=== PATIENT | female | born 1945 | race African-American/Black ===

== ENCOUNTER 2018-03-16 08:01 | Emergency (ER) | payer MEDICARE | END 2018-03-16 09:22 | disposition left against medical advice (07) | LOC: ER 09:18 | DX: Z53.21 Procedure and treatment not carried out due to patient leaving prior to being seen by health care provider (principal) ==

== ENCOUNTER 2019-01-04 16:35 | Inpatient (IN) | payer MEDICARE ==
[~2019-01-04] VITALS: Ht 177.8 cm; Wt 94.8 kg
[2019-01-04] MEDS ORDERED: SODIUM CHLORIDE 0.9% 1,000 ML IV ONE (16:59)
[2019-01-04] MEDS ORDERED: ACETAMINOPHEN 325MG TABLET PO ONE (18:00)
[2019-01-04 18:03] LABS: BASOPHILS % 0.7 % (0.0-2.0); HEMATOCRIT. 45.9 % (36.0-48.0); HEMOGLOBIN. 14.6 g/dL (12.0-16.0); LYMPHOCYTES % 30.6 % (20.0-50.0); MEAN CORPUSCULAR HEMOGLOBIN 22.8 pg (28.0-32.0); MEAN CORPUSCULAR VOLUME 71.4 fL (81.0-99.0); MEAN PLATELET VOLUME 8.4 fl (7.4-10.4); MONOCYTES % 7.9 % (2.0-8.0); NEUTROPHILS % 52.8 % (40.0-76.0); PLATELET 266 x1000/uL (130-400); RED BLOOD CELL COUNT 6.43 mill/uL (4.2-5.4); RED CELL DISTRIBUTION WIDTH 15.5 % (11.6-14.6)
[2019-01-04 18:10] LABS: CHLORIDE 101 mEq/L (98-107)
[2019-01-04 18:16] LABS: D-DIMER 0.27 mg/L FEU (<0.50); PROTHROMBIN TIME 10.7 sec (9.6-11.0)
[2019-01-04] MEDS ORDERED: SODIUM CHLORIDE 0.9% 1000ML BAG (SEPSIS BOLUS) IV ONE (18:45)
[2019-01-04] MEDS ORDERED: ASPIRIN 325MG EC TABLET PO ONE (19:15)
[2019-01-04 19:53] LABS: CLARITY URINE CLEAR (CLEAR); COLOR URINE YELLOW (YELLOW); KETONES URINE NEGATIVE (NEGATIVE); LEUKOCYTE ESTERASE URINE 3+ (NEGATIVE); NITRITE URINE NEGATIVE (NEGATIVE); OCCULT BLOOD URINE NEGATIVE (NEGATIVE); PH URINE 6.5 (4.5-8.0); PROTEIN URINE NEGATIVE (NEGATIVE); UROBILINOGEN URINE 0.2 E.U./dL (0.2-1.0)
[2019-01-04] MEDS ORDERED: CEFTRIAXONE 1 G PREMIX 50 ML IV SCH (20:30)
[2019-01-04] MEDS ORDERED: DEXTROSE 50% WATER 50ML SYRINGE IV PRN (21:30)
[2019-01-04] MEDS ORDERED: HYDRALAZINE 20MG/ML VIAL IV PRN (21:30)
[2019-01-04] MEDS ORDERED: ONDANSETRON HCL 4MG/2ML INJ IV PRN (21:30)
[2019-01-04] MEDS ORDERED: MAGNESIUM/ALUMINUM HYDROXIDE/SIMETHICONE 30ML UDC PO PRN (21:30)
[2019-01-04] MEDS ORDERED: LORAZEPAM 2MG/ML CPJ IV PRN (21:30)
[2019-01-04] MEDS ORDERED: GUAIFENESIN 200MG/10ML SUGAR FREE UDC PO PRN (21:30)
[2019-01-04] MEDS ORDERED: MORPHINE SULFATE 2 MG/ML CPJ (NOT FOR IM USE) IV PRN (21:30)
[2019-01-04] MEDS ORDERED: DOCUSATE SODIUM 100MG CAPSULE PO PRN (21:30)
[2019-01-04] MEDS ORDERED: ACETAMINOPHEN 325MG TABLET PO PRN (21:30)
[2019-01-04] MEDS ORDERED: NA PHOS,M-B/NA PHOS,DI-BA ENEMA 118ML PR PRN (21:30)
[2019-01-04] MEDS ORDERED: DIPHENHYDRAMINE 50MG/ML VIAL IV PRN (21:30)
[2019-01-04 22:00] VITALS: BP 150/75
[2019-01-04] MEDS: SODIUM CHLORIDE 0.9% INJ 3ML FLUSH IVF SCH (22:37)
[2019-01-04] MEDS: HYDROCODONE/ACETAMINOPHEN 10/325MG TABLET PO PRN (22:37)
[2019-01-05] VITALS: BP 158/75
[2019-01-05] MEDS ORDERED: LOSA50TA41 PO (00:14)
[2019-01-05] MEDS ORDERED: AMLO5TAB88 PO (00:14)
[2019-01-05] MEDS ORDERED: ATEN50TA PO (00:14)
[2019-01-05] MEDS ORDERED: TRIA1TAB92 PO (00:14)
[2019-01-05 01:04] LABS: CREATINE KINASE 68 IU/L (26-192)
[2019-01-05 01:05] LABS: CREATINE KINASE MB FRACTION < 1.0 ng/mL (0.5-3.6)
[2019-01-05] MEDS: IPRATROPIUM/ALBUTEROL 0.5-3(2.5)MG/3ML NEB HHN PRN (01:42)
[2019-01-05 04:00] VITALS: BP 137/61
[2019-01-05] MEDS: SODIUM CHLORIDE 0.9% INJ 3ML FLUSH IVF SCH ×3 (05:29→21:43)
[2019-01-05 07:06] LABS: BASOPHILS % 0.6 % (0.0-2.0); EOSINOPHILS % 8.6 % (0.0-5.0); HEMATOCRIT. 39.4 % (36.0-48.0); HEMOGLOBIN. 12.6 g/dL (12.0-16.0); LYMPHOCYTES % 32.6 % (20.0-50.0); MEAN CORPUSCULAR HEMOGLOBIN 22.8 pg (28.0-32.0); MEAN CORPUSCULAR VOLUME 71.2 fL (81.0-99.0); MEAN PLATELET VOLUME 8.5 fl (7.4-10.4); NEUTROPHILS % 48.2 % (40.0-76.0); PLATELET 214 x1000/uL (130-400); RED BLOOD CELL COUNT 5.53 mill/uL (4.2-5.4); RED CELL DISTRIBUTION WIDTH 15.7 % (11.6-14.6)
[2019-01-05 07:22] LABS: CHLORIDE 107 mEq/L (98-107)
[2019-01-05 07:34] LABS: CREATINE KINASE 59 IU/L (26-192); LDL CHOLESTEROL 110 mg/dL (5-100)
[2019-01-05 07:35] LABS: CREATINE KINASE MB FRACTION < 1.0 ng/mL (0.5-3.6); HDL CHOLESTEROL 52 mg/dL (40-59)
[2019-01-05 07:36] LABS: T4 FREE 1.08 ng/dL (0.76-1.46)
[2019-01-05 08:00] VITALS: BP 142/73
[2019-01-05] MEDS: ENOXAPARIN 40MG/0.4ML SYR SUBCUT SCH (08:39)
[2019-01-05] MEDS: HYDROCODONE/ACETAMINOPHEN 10/325MG TABLET PO PRN ×3 (08:39→21:42)
[2019-01-05] MEDS: ASPIRIN 81MG EC TABLET PO SCH (08:39)
[2019-01-05] MEDS ORDERED: POTASSIUM CHLORIDE 20MEQ TABLET SR PO SCH (10:15)
[2019-01-05 12:00] VITALS: BP 141/71
[2019-01-05] MEDS ORDERED: OMEP10CA5 MT (13:03)
[2019-01-05 16:00] VITALS: BP 154/84
[2019-01-05] MEDS: OMEPRAZOLE 20MG CAPSULE EXTENDED RELEASE PO SCH (17:51)
[2019-01-05 18:15] LABS: CREATINE KINASE 68 IU/L (26-192)
[2019-01-05 18:16] LABS: CREATINE KINASE MB FRACTION < 1.0 ng/mL (0.5-3.6)
[2019-01-05 20:00] VITALS: BP 165/81
[2019-01-05] MEDS: CLONIDINE 0.1MG TABLET PO PRN (21:42)
[2019-01-06 00:15] VITALS: BP 150/70
[2019-01-06 00:48] LABS: CREATINE KINASE 63 IU/L (26-192)
[2019-01-06 00:51] LABS: CREATINE KINASE MB FRACTION < 1.0 ng/mL (0.5-3.6)
[2019-01-06] MEDS: IPRATROPIUM/ALBUTEROL 0.5-3(2.5)MG/3ML NEB HHN PRN (02:36)
[2019-01-06] MEDS: HYDROCODONE/ACETAMINOPHEN 10/325MG TABLET PO PRN ×3 (02:53→21:24)
[2019-01-06 04:00] VITALS: BP 139/62
[2019-01-06] MEDS: SODIUM CHLORIDE 0.9% INJ 3ML FLUSH IVF SCH ×3 (05:59→21:24)
[2019-01-06 07:39] LABS: CREATINE KINASE 58 IU/L (26-192); CREATINE KINASE MB FRACTION < 1.0 ng/mL (0.5-3.6)
[2019-01-06] MEDS: OMEPRAZOLE 20MG CAPSULE EXTENDED RELEASE PO SCH (07:46)
[2019-01-06 08:00] VITALS: BP 156/75
[2019-01-06] MEDS: ASPIRIN 81MG EC TABLET PO SCH (08:00)
[2019-01-06] MEDS: ENOXAPARIN 40MG/0.4ML SYR SUBCUT SCH (08:00)
[2019-01-06] MEDS ORDERED: METHYLPREDNISOLONE SOD SUCC 125 MG/2 ML VIAL IV SCH (11:00)
[2019-01-06] MEDS: FAMOTIDINE 20MG/2ML VIAL IV SCH ×2 (11:23→20:54)
[2019-01-06 11:37] VITALS: BP 106/67
[2019-01-06] MEDS: ATENOLOL 50 MG TABLET PO SCH (12:45)
[2019-01-06] MEDS ORDERED: LEVOFLOXACIN 500MG PREMIX 100 ML IV SCH (13:00)
[2019-01-06] MEDS: IPRATROPIUM/ALBUTEROL 0.5-3(2.5)MG/3ML NEB HHN SCH ×2 (13:26→21:22)
[2019-01-06] MEDS: AMLODIPINE 5MG TABLET PO SCH (13:28)
[2019-01-06] MEDS: FLUTICASONE PROPIONATE 50MCG/SPRAY BOTTLE BOTHNSTRLS SCH ×2 (13:31→20:54)
[2019-01-06] MEDS ORDERED: DEXTROSE 50% WATER 50ML SYRINGE IV PRN (14:00)
[2019-01-06 15:59] VITALS: BP 163/73
[2019-01-06] MEDS: CLONIDINE 0.1MG TABLET PO PRN (16:02)
[2019-01-06] MEDS: BLOOD SUGAR DIAGNOSTIC STRIP TEST SCH ×2 (17:29→21:00)
[2019-01-06] MEDS: INSULIN LISPRO 100 UNITS/ML SUBCUT SCH ×2 (17:40→21:34)
[2019-01-06] MEDS: METHYLPREDNISOLONE SOD SUCC 40 MG/ML VIAL IV SCH (19:36)
[2019-01-06 20:00] VITALS: BP 160/94
[2019-01-06] MEDS ORDERED: LORATADINE 10MG TABLET PO SCH (21:00)
[2019-01-07] VITALS: BP 148/86
[2019-01-07] MEDS: IPRATROPIUM/ALBUTEROL 0.5-3(2.5)MG/3ML NEB HHN SCH ×2 (02:28→07:39)
[2019-01-07] MEDS: METHYLPREDNISOLONE SOD SUCC 40 MG/ML VIAL IV SCH (03:57)
[2019-01-07 04:00] VITALS: BP 144/77
[2019-01-07] MEDS: BLOOD SUGAR DIAGNOSTIC STRIP TEST SCH (06:20)
[2019-01-07] MEDS: SODIUM CHLORIDE 0.9% INJ 3ML FLUSH IVF SCH (06:32)
[2019-01-07] MEDS: INSULIN LISPRO 100 UNITS/ML SUBCUT SCH (06:33)
[2019-01-07 07:12] LABS: CHLORIDE 105 mEq/L (98-107)
[2019-01-07 07:13] LABS: BASOPHILS % 0.2 % (0.0-2.0); HEMATOCRIT. 41.7 % (36.0-48.0); HEMOGLOBIN. 13.5 g/dL (12.0-16.0); LYMPHOCYTES % 10.2 % (20.0-50.0); MEAN CORPUSCULAR VOLUME 71.1 fL (81.0-99.0); MEAN PLATELET VOLUME 8.9 fl (7.4-10.4); MONOCYTES % 1.5 % (2.0-8.0); NEUTROPHILS % 88.1 % (40.0-76.0); PLATELET 266 x1000/uL (130-400); RED BLOOD CELL COUNT 5.86 mill/uL (4.2-5.4); RED CELL DISTRIBUTION WIDTH 15.7 % (11.6-14.6)
[2019-01-07] MEDS: ATENOLOL 50 MG TABLET PO SCH (08:03)
[2019-01-07] MEDS: FAMOTIDINE 20MG/2ML VIAL IV SCH (08:09)
[2019-01-07] MEDS: ASPIRIN 81MG EC TABLET PO SCH (08:09)
[2019-01-07] MEDS: AMLODIPINE 5MG TABLET PO SCH (08:09)
[2019-01-07] MEDS: HYDROCODONE/ACETAMINOPHEN 10/325MG TABLET PO PRN (08:09)
[2019-01-07] MEDS: ENOXAPARIN 40MG/0.4ML SYR SUBCUT SCH (08:10)
[2019-01-07] MEDS: FLUTICASONE PROPIONATE 50MCG/SPRAY BOTTLE BOTHNSTRLS SCH (08:11)
[2019-01-07 08:59] VITALS: BP_SYST 144; BP_SYST 145; BP_DIAS 75; BP_DIAS 76
[2019-01-07 09:27] VITALS: BP 145/76
== END 2019-01-07 11:10 | disposition home or self-care (01) | DRG 394 ==
LOC: ER 16:35 → 8WST 20:23 → EDBEDREQ 20:25 → EDBEDREQTM 20:25 → ENRESERV 21:04 → CANRESERV 21:04 → ENRESERV 21:09
PROVIDERS: ADMIT Internal Medicine; ATTEND Internal Medicine
DX: K52.1 Toxic gastroenteritis and colitis (principal); J45.901 Unspecified asthma with (acute) exacerbation; N39.0 Urinary tract infection, site not specified; E87.2 Acidosis; R65.10 Systemic inflammatory response syndrome (SIRS) of non-infectious origin without acute organ dysfunction; R06.03 Acute respiratory distress; E86.0 Dehydration; I10 Essential (primary) hypertension; E78.5 Hyperlipidemia, unspecified; J00 Acute nasopharyngitis [common cold]; E78.00 Pure hypercholesterolemia, unspecified; R79.89 Other specified abnormal findings of blood chemistry; Z60.2 Problems related to living alone; T36.95XA Adverse effect of unspecified systemic antibiotic, initial encounter; R35.8 Other polyuria; J03.90 Acute tonsillitis, unspecified; Z82.49 Family history of ischemic heart disease and other diseases of the circulatory system; Z82.5 Family history of asthma and other chronic lower respiratory diseases; Z90.49 Acquired absence of other specified parts of digestive tract; Y92.89 Other specified places as the place of occurrence of the external cause; Z79.899 Other long term (current) drug therapy
CPT/HCPCS: 36415; 71045; 80048; 80061; 81003; 82550; 82553; 82962; 83036; 83605; 83880; 84439; 84443; 84484; 85379; 93005; 93306; 94640; 99291; C1893; J0360; J1650; J1815; J1956; J2270; J2920; J2930; J3490; J7030; J7040; J7620